=== PATIENT | female | born 1955 | race Caucasian/White ===

== ENCOUNTER 2022-01-07 13:10 | Inpatient (IN) | payer BC, MEDICARE ==
[~2022-01-07] VITALS: Ht 152.4 cm; Wt 63.5 kg
[2022-01-07] VITALS (8 sets, daily range): BP systolic 115–162; BP diastolic 57–99
[2022-01-07] MEDS ORDERED: POVIDONE IODINE 0.05% 0.05 % ML PO ONE (13:20)
[2022-01-07] MEDS ORDERED: PROPOFOL IV EMULSION 10 MG/ML 20 ML VIAL ONE (13:20)
[2022-01-07] MEDS ORDERED: LIDOCAINE HCL 2% LOCAL INJ 5 ML SDV VIAL INJ ONE (13:20)
[2022-01-07] MEDS ORDERED: ONDANSETRON HCL INJ 2MG/ML 2ML 2 MG/ML VIAL IV PRN (17:45)
[2022-01-07] MEDS ORDERED: Morphine 2mg Syringe 2 MG/ML SYR IV PRN (17:45)
[2022-01-07 19:02] LABS: BASOPHILS % 0.1 % (0.0-1.0); HEMATOCRIT 33.5 % (34.2-44.1); HEMOGLOBIN 10.5 g/dL (12.0-16.0); LYMPHOCYTES # (AUTO) 0.2 (1.0-3.2); LYMPHOCYTES % 1.4 % (18.0-39.1); MEAN CORPUSCULAR HEMOGLOBIN 28.9 pg (28-32); MEAN CORPUSCULAR HGB CONC 31.3 g/dL (31-35); MEAN CORPUSCULAR VOLUME 92.3 fL (81-99); MONOCYTES # (AUTO) 0.5 (0.2-0.8); MONOCYTES % 3.1 % (4.4-11.3); NEUTROPHILS # (AUTO) 14.7 (2.1-6.9); NEUTROPHILS % 94.6 % (38.7-80.0); PLATELET COUNT 244 x10e3/uL (140-360); RED BLOOD COUNT 3.63 x10e6/uL (3.6-5.1); RED CELL DISTRIBUTION WIDTH 19.5 % (11.7-14.4)
[2022-01-07 19:12] LABS: INR 1.03; PROTHROMBIN TIME 14.4 seconds (11.9-14.5)
[2022-01-07 19:37] LABS: ALBUMIN 2.1 g/dL (3.5-5.0); ALBUMIN/GLOBULIN RATIO 0.6 (0.8-2.0); ANION GAP 14.9 mmol/L (8-16); CALCIUM 8.2 mg/dL (8.4-10.2); CREATININE, SERUM 0.61 mg/dL (0.57-1.11); POTASSIUM 3.9 mmol/L (3.5-5.1)
[2022-01-07] MEDS: METHYLPREDNISOLONE SOD SUCC 125 MG/2ML VIAL IV SCH (19:50)
[2022-01-07] MEDS: D5.45%NS/KCL 20MEQ 1,000 ML IV SCH (19:50)
[2022-01-07] MEDS ORDERED: SODIUM CHLORIDE 0.9% 500ML 500 ML ONE (19:56)
[2022-01-07] MEDS: BUDESONIDE/FORMOTEROL 160/4.5MCG INHALER INH SCH (20:00)
[2022-01-07 20:11] LABS: MAGNESIUM 2.1 MG/DL (1.3-2.1)
[2022-01-07 20:13] LABS: LYMPHOCYTES % (MANUAL) 1 % (19-48); MONOCYTES % (MANUAL) 1 % (3.4-9.0); NEUTROPHILS % (MANUAL) 98 % (40-74); NUCLEATED RED BLOOD CELLS 6
[2022-01-07 20:14] LABS: POLYCHROMASIA FEW
[2022-01-07 20:15] LABS: PLATELET ESTIMATE ADEQUATE; PLATELET MORPHOLOGY COMMENT FEW GIANT
[2022-01-07 20:30] LABS: FERRITIN 346.28 ng/mL (4.63-204.00)
[2022-01-07] MEDS ORDERED: LEVALBUTER1.25 MG/3 (21:05)
[2022-01-07] MEDS ORDERED: TRELEGY ELLIPT1 EACH (21:05)
[2022-01-07] MEDS ORDERED: CLONAZEPAM1 MG (21:05)
[2022-01-07] MEDS ORDERED: BENZONATATE100 MG (21:05)
[2022-01-07] MEDS ORDERED: DIGOXIN125 MCG (21:05)
[2022-01-07] MEDS ORDERED: FUROSEMIDE40 MG (21:05)
[2022-01-07] MEDS ORDERED: ELIQUIS5 MG (21:05)
[2022-01-07] MEDS ORDERED: ACETAZOLAMIDE250 MG (21:05)
[2022-01-07] MEDS ORDERED: PREDNISONE20 MG (21:05)
[2022-01-07] MEDS ORDERED: IPRATROPIU0.2 MG/1 M (21:05)
[2022-01-07] MEDS ORDERED: DILTIAZEM HCL60 MG (21:05)
[2022-01-07] MEDS ORDERED: POTASSIUM CHLO20 ME2 (21:05)
[2022-01-07 21:27] LABS: ABG HCO3 32 mmol/L (22-26); ABG PCO2 57 mmHg (35-45); ABG PH 7.35 (7.35-7.45); ABG PO2 94 mmHg (80-105); ABG TCO2 33
[2022-01-07] MEDS: MEROPENEM 1 GM in SODIUM CHLORIDE 0.9% 100 ML IV SCH (21:50)
[2022-01-08] VITALS (27 sets, daily range): BP systolic 127–191; BP diastolic 67–105
[2022-01-08 02:16] LABS: CLARITY,URINE SL CLOUDY (CLEAR); COLOR,URINE YELLOW (YELLOW); KETONES,URINE NEGATIVE (NEGATIVE); LEUKOCYTE ESTERASE ,URINE NEGATIVE (NEGATIVE); NITRITE,URINE NEGATIVE (NEGATIVE); PROTEIN,URINE DIPSTICK 2+ (NEGATIVE); URINE UROBILINOGEN 1 mg/dL (0.2 - 1)
[2022-01-08 02:21] LABS: BACTERIA,URINE FEW /HPF; EPITHELIAL CELLS,URINE RARE /LPF; RBC,URINE >50 /HPF (0-5)
[2022-01-08] MEDS: D5.45%NS/KCL 20MEQ 1,000 ML IV SCH (03:36)
[2022-01-08 04:42] LABS: BASOPHILS % 0.1 % (0.0-1.0); HEMATOCRIT 32.7 % (34.2-44.1); HEMOGLOBIN 10.1 g/dL (12.0-16.0); LYMPHOCYTES # (AUTO) 0.2 (1.0-3.2); LYMPHOCYTES % 1.3 % (18.0-39.1); MEAN CORPUSCULAR HEMOGLOBIN 28.5 pg (28-32); MEAN CORPUSCULAR HGB CONC 30.9 g/dL (31-35); MEAN CORPUSCULAR VOLUME 92.4 fL (81-99); MONOCYTES # (AUTO) 0.4 (0.2-0.8); MONOCYTES % 2.8 % (4.4-11.3); NEUTROPHILS # (AUTO) 14.6 (2.1-6.9); NEUTROPHILS % 94.6 % (38.7-80.0); PLATELET COUNT 230 x10e3/uL (140-360); RED BLOOD COUNT 3.54 x10e6/uL (3.6-5.1); RED CELL DISTRIBUTION WIDTH 20.1 % (11.7-14.4)
[2022-01-08 04:58] LABS: ALBUMIN 2.1 g/dL (3.5-5.0); ALBUMIN/GLOBULIN RATIO 0.7 (0.8-2.0); ANION GAP 12.9 mmol/L (8-16); CALCIUM 7.6 mg/dL (8.4-10.2); CREATININE, SERUM 0.58 mg/dL (0.57-1.11); POTASSIUM 3.9 mmol/L (3.5-5.1)
[2022-01-08 05:31] LABS: FREE T4 (FREE THYROXINE) 0.91 ng/dL (0.8-1.8)
[2022-01-08] MEDS: MEROPENEM 1 GM in SODIUM CHLORIDE 0.9% 100 ML IV SCH ×3 (06:26→22:02)
[2022-01-08] MEDS: BUDESONIDE/FORMOTEROL 160/4.5MCG INHALER INH SCH ×2 (07:00→19:35)
[2022-01-08] MEDS: METHYLPREDNISOLONE SOD SUCC 125 MG/2ML VIAL IV SCH ×2 (08:50→20:56)
[2022-01-08] MEDS: FOLIC ACID 1 MG TAB PO SCH (08:56)
[2022-01-08] MEDS ORDERED: HYDRALAZINE HCL 20 MG/ML VIAL IV PRN (09:45)
[2022-01-08] MEDS ORDERED: SODIUM CHLORIDE 0.9% 250ML 250 ML IV ONE (10:00)
[2022-01-08] MEDS ORDERED: FUROSEMIDE INJ 10 MG/ML 2 ML VIAL IV ONE (11:00)
[2022-01-08 14:31] LABS: HEMATOCRIT 35.7 % (34.2-44.1); HEMOGLOBIN 11.1 g/dL (12.0-16.0)
[2022-01-08] MEDS ORDERED: EPINEPHRINE HCL 1:1000 1ML 1 MG/ML AMP ONE (14:45)
[2022-01-08] MEDS ORDERED: SODIUM CHLORIDE 0.9% 1000ML 1,000 ML ONE (15:30)
[2022-01-08 22:12] LABS: HEMOGLOBIN 11.1 g/dL (12.0-16.0)
[2022-01-09] VITALS (21 sets, daily range): BP systolic 117–179; BP diastolic 64–110
[2022-01-09] MEDS: MEROPENEM 1 GM in SODIUM CHLORIDE 0.9% 100 ML IV SCH ×3 (06:16→21:58)
[2022-01-09] MEDS: BUDESONIDE/FORMOTEROL 160/4.5MCG INHALER INH SCH ×2 (07:00→18:55)
[2022-01-09 07:16] LABS: HEMATOCRIT 35.4 % (34.2-44.1); LYMPHOCYTES # (AUTO) 0.1 (1.0-3.2); LYMPHOCYTES % 0.9 % (18.0-39.1); MEAN CORPUSCULAR HEMOGLOBIN 28.6 pg (28-32); MEAN CORPUSCULAR HGB CONC 31.1 g/dL (31-35); MEAN CORPUSCULAR VOLUME 91.9 fL (81-99); MONOCYTES # (AUTO) 0.3 (0.2-0.8); MONOCYTES % 2.8 % (4.4-11.3); NEUTROPHILS # (AUTO) 10.3 (2.1-6.9); PLATELET COUNT 220 x10e3/uL (140-360); RED BLOOD COUNT 3.85 x10e6/uL (3.6-5.1); RED CELL DISTRIBUTION WIDTH 19.8 % (11.7-14.4)
[2022-01-09 07:53] LABS: ALBUMIN/GLOBULIN RATIO 0.7 (0.8-2.0); ANION GAP 11.7 mmol/L (8-16); CALCIUM 7.5 mg/dL (8.4-10.2); CREATININE, SERUM 0.53 mg/dL (0.57-1.11); POTASSIUM 3.7 mmol/L (3.5-5.1)
[2022-01-09] MEDS: METHYLPREDNISOLONE SOD SUCC 125 MG/2ML VIAL IV SCH ×2 (08:38→19:52)
[2022-01-09] MEDS: FOLIC ACID 1 MG TAB PO SCH (09:00)
[2022-01-09] MEDS ORDERED: BACITRACIN ZINC 15 GM OINT TOP SCH (09:00)
[2022-01-09] MEDS: MUPIROCIN 2% OINT 22 GM TUBE TOP SCH (14:12)
[2022-01-09 14:16] LABS: HEMOGLOBIN 11.1 g/dL (12.0-16.0)
[2022-01-09] MEDS ORDERED: Morphine 2mg Syringe 2 MG/ML SYR IV ONE (17:45)
[2022-01-09] MEDS: DEXMEDETOMIDINE 400MCG/NS100ML 100 ML IV PRN (20:44)
[2022-01-10] VITALS (68 sets, daily range): BP systolic 96–175; BP diastolic 45–100
[2022-01-10 06:20] LABS: BASOPHILS % 0.1 % (0.0-1.0); HEMATOCRIT 32.1 % (34.2-44.1); HEMOGLOBIN 9.9 g/dL (12.0-16.0); LYMPHOCYTES # (AUTO) 0.1 (1.0-3.2); LYMPHOCYTES % 1.2 % (18.0-39.1); MEAN CORPUSCULAR HEMOGLOBIN 28.8 pg (28-32); MEAN CORPUSCULAR HGB CONC 30.8 g/dL (31-35); MEAN CORPUSCULAR VOLUME 93.3 fL (81-99); MONOCYTES # (AUTO) 0.2 (0.2-0.8); MONOCYTES % 2.4 % (4.4-11.3); NEUTROPHILS # (AUTO) 9.8 (2.1-6.9); NEUTROPHILS % 96.1 % (38.7-80.0); PLATELET COUNT 195 x10e3/uL (140-360); RED BLOOD COUNT 3.44 x10e6/uL (3.6-5.1)
[2022-01-10] MEDS: MEROPENEM 1 GM in SODIUM CHLORIDE 0.9% 100 ML IV SCH ×3 (06:29→20:31)
[2022-01-10] MEDS: BUDESONIDE/FORMOTEROL 160/4.5MCG INHALER INH SCH ×3 (07:00→20:15)
[2022-01-10 07:09] LABS: ALBUMIN 1.7 g/dL (3.5-5.0); ALBUMIN/GLOBULIN RATIO 0.5 (0.8-2.0); ANION GAP 13.7 mmol/L (8-16); CALCIUM 7.2 mg/dL (8.4-10.2); CREATININE, SERUM 0.5 mg/dL (0.57-1.11); POTASSIUM 3.7 mmol/L (3.5-5.1)
[2022-01-10] MEDS: METHYLPREDNISOLONE SOD SUCC 125 MG/2ML VIAL IV SCH ×2 (07:58→19:32)
[2022-01-10] MEDS: FOLIC ACID 1 MG TAB PO SCH (09:13)
[2022-01-10] MEDS: MUPIROCIN 2% OINT 22 GM TUBE TOP SCH (09:30)
[2022-01-10 13:18] LABS: HEMATOCRIT 34.7 % (34.2-44.1); HEMOGLOBIN 10.5 g/dL (12.0-16.0)
[2022-01-10] MEDS: LEVALBUTEROL HCL SOLN NEBU 0.63 MG/3 ML NEB INH PRN ×3 (14:45→22:45)
[2022-01-10] MEDS: ACETAMINOPHEN 325 MG TAB PO PRN (19:33)
[2022-01-10] MEDS: DILTIAZEM HCL 30 MG TAB PO SCH (20:31)
[2022-01-11] VITALS (93 sets, daily range): BP systolic 93–193; BP diastolic 54–134
[2022-01-11] MEDS: MEROPENEM 1 GM in SODIUM CHLORIDE 0.9% 100 ML IV SCH ×3 (05:20→20:19)
[2022-01-11 07:15] LABS: BASOPHILS % 0.1 % (0.0-1.0); HEMATOCRIT 31.4 % (34.2-44.1); HEMOGLOBIN 9.4 g/dL (12.0-16.0); LYMPHOCYTES # (AUTO) 0.1 (1.0-3.2); LYMPHOCYTES % 0.8 % (18.0-39.1); MEAN CORPUSCULAR HEMOGLOBIN 28.7 pg (28-32); MEAN CORPUSCULAR HGB CONC 29.9 g/dL (31-35); MEAN CORPUSCULAR VOLUME 95.7 fL (81-99); MONOCYTES # (AUTO) 0.2 (0.2-0.8); MONOCYTES % 1.9 % (4.4-11.3); NEUTROPHILS # (AUTO) 10.5 (2.1-6.9); NEUTROPHILS % 96.7 % (38.7-80.0); PLATELET COUNT 191 x10e3/uL (140-360); RED BLOOD COUNT 3.28 x10e6/uL (3.6-5.1)
[2022-01-11] MEDS: LEVALBUTEROL HCL SOLN NEBU 0.63 MG/3 ML NEB INH PRN ×3 (07:22→19:20)
[2022-01-11] MEDS: BUDESONIDE/FORMOTEROL 160/4.5MCG INHALER INH SCH ×2 (07:22→19:20)
[2022-01-11 07:24] LABS: ALBUMIN 1.7 g/dL (3.5-5.0); ALBUMIN/GLOBULIN RATIO 0.5 (0.8-2.0); ANION GAP 12.4 mmol/L (8-16); CALCIUM 7.4 mg/dL (8.4-10.2); CREATININE, SERUM 0.54 mg/dL (0.57-1.11); POTASSIUM 4.4 mmol/L (3.5-5.1)
[2022-01-11] MEDS: FOLIC ACID 1 MG TAB PO SCH (08:22)
[2022-01-11] MEDS: METHYLPREDNISOLONE SOD SUCC 125 MG/2ML VIAL IV SCH ×2 (08:22→20:19)
[2022-01-11] MEDS: DILTIAZEM HCL 30 MG TAB PO SCH ×3 (08:23→20:20)
[2022-01-11] MEDS ORDERED: DEXTROSE 50% SYRINGE 50 ML IV PRN (09:00)
[2022-01-11] MEDS: MUPIROCIN 2% OINT 22 GM TUBE TOP SCH (09:29)
[2022-01-11] MEDS: DEXMEDETOMIDINE 400MCG/NS100ML 100 ML IV PRN (09:30)
[2022-01-11] MEDS: DEXMEDETOMIDINE HCL 400 MCG in SODIUM CHLORIDE 0.9% 100 ML IV PRN ×2 (09:45→23:15)
[2022-01-11 11:44] LABS: ABG HCO3 29 mmol/L (22-26); ABG PCO2 41 mmHg (35-45); ABG PH 7.46 (7.35-7.45); ABG PO2 66 mmHg (80-105); ABG TCO2 30
[2022-01-11] MEDS: INSULIN REGULAR, HUMAN 100 UNIT/1 ML SQ SCH ×3 (11:44→22:02)
[2022-01-12] VITALS (78 sets, daily range): BP systolic 97–163; BP diastolic 52–81
[2022-01-12] MEDS: LEVALBUTEROL HCL SOLN NEBU 0.63 MG/3 ML NEB INH PRN ×5 (02:35→19:05)
[2022-01-12] MEDS: MEROPENEM 1 GM in SODIUM CHLORIDE 0.9% 100 ML IV SCH ×3 (05:29→21:16)
[2022-01-12 06:31] LABS: BASOPHILS % 0.1 % (0.0-1.0); HEMATOCRIT 31.9 % (34.2-44.1); HEMOGLOBIN 9.3 g/dL (12.0-16.0); LYMPHOCYTES # (AUTO) 0.1 (1.0-3.2); LYMPHOCYTES % 0.6 % (18.0-39.1); MEAN CORPUSCULAR HEMOGLOBIN 28.7 pg (28-32); MEAN CORPUSCULAR HGB CONC 29.2 g/dL (31-35); MEAN CORPUSCULAR VOLUME 98.5 fL (81-99); MONOCYTES # (AUTO) 0.4 (0.2-0.8); NEUTROPHILS # (AUTO) 12.2 (2.1-6.9); PLATELET COUNT 200 x10e3/uL (140-360); RED BLOOD COUNT 3.24 x10e6/uL (3.6-5.1); RED CELL DISTRIBUTION WIDTH 19.6 % (11.7-14.4)
[2022-01-12 06:58] LABS: ALBUMIN 1.8 g/dL (3.5-5.0); ALBUMIN/GLOBULIN RATIO 0.5 (0.8-2.0); ANION GAP 11.4 mmol/L (8-16); CALCIUM 7.9 mg/dL (8.4-10.2); CREATININE, SERUM 0.57 mg/dL (0.57-1.11); POTASSIUM 5.4 mmol/L (3.5-5.1)
[2022-01-12] MEDS: METHYLPREDNISOLONE SOD SUCC 125 MG/2ML VIAL IV SCH ×2 (08:18→20:59)
[2022-01-12] MEDS: INSULIN REGULAR, HUMAN 100 UNIT/1 ML SQ SCH ×4 (08:42→21:15)
[2022-01-12] MEDS: DILTIAZEM HCL 30 MG TAB PO SCH ×3 (08:58→20:30)
[2022-01-12] MEDS: FOLIC ACID 1 MG TAB PO SCH (08:59)
[2022-01-12] MEDS: MUPIROCIN 2% OINT 22 GM TUBE TOP SCH (09:11)
[2022-01-12] MEDS ORDERED: SOD POLYSTYRENE SULFONATE SUSP 15 GM/60 ML BTL PO ONE (10:45)
[2022-01-12 10:52] LABS: BAND NEUTROPHILS % (MANUAL) 1 %; MONOCYTES % (MANUAL) 4 % (3.4-9.0); NEUTROPHILS % (MANUAL) 95 % (40-74)
[2022-01-12 10:53] LABS: HYPOCHROMASIA SLIGHT
[2022-01-12 10:54] LABS: ANISOCYTOSIS SLIGHT; PLATELET ESTIMATE ADEQUATE
[2022-01-12 10:55] LABS: PLATELET MORPHOLOGY COMMENT NORMAL
[2022-01-12] MEDS: BUDESONIDE/FORMOTEROL 160/4.5MCG INHALER INH SCH ×2 (11:10→19:00)
[2022-01-12] MEDS ORDERED: KETOROLAC TROMETHAMINE 30 MG/ML VIAL IV ONE (12:45)
[2022-01-12] MEDS: ACETAMINOPHEN 325 MG TAB PO PRN (19:50)
[2022-01-12] MEDS: DEXMEDETOMIDINE HCL 400 MCG in SODIUM CHLORIDE 0.9% 100 ML IV PRN (19:55)
[2022-01-13] VITALS (26 sets, daily range): BP systolic 101–141; BP diastolic 44–80
[2022-01-13] MEDS: MEROPENEM 1 GM in SODIUM CHLORIDE 0.9% 100 ML IV SCH ×3 (05:26→21:34)
[2022-01-13] MEDS: BUDESONIDE/FORMOTEROL 160/4.5MCG INHALER INH SCH ×2 (07:00→19:00)
[2022-01-13 07:04] LABS: BASOPHILS % 0.1 % (0.0-1.0); HEMATOCRIT 31.7 % (34.2-44.1); HEMOGLOBIN 9.2 g/dL (12.0-16.0); LYMPHOCYTES # (AUTO) 0.1 (1.0-3.2); LYMPHOCYTES % 1.3 % (18.0-39.1); MEAN CORPUSCULAR HEMOGLOBIN 28.5 pg (28-32); MEAN CORPUSCULAR VOLUME 98.1 fL (81-99); MONOCYTES # (AUTO) 0.3 (0.2-0.8); MONOCYTES % 3.5 % (4.4-11.3); NEUTROPHILS # (AUTO) 9.1 (2.1-6.9); NEUTROPHILS % 94.7 % (38.7-80.0); PLATELET COUNT 201 x10e3/uL (140-360); RED BLOOD COUNT 3.23 x10e6/uL (3.6-5.1); RED CELL DISTRIBUTION WIDTH 19.5 % (11.7-14.4)
[2022-01-13 07:22] LABS: ALBUMIN 1.7 g/dL (3.5-5.0); ALBUMIN/GLOBULIN RATIO 0.5 (0.8-2.0); ANION GAP 11.3 mmol/L (8-16); CALCIUM 8.1 mg/dL (8.4-10.2); CREATININE, SERUM 0.48 mg/dL (0.57-1.11); MAGNESIUM 1.9 MG/DL (1.3-2.1); POTASSIUM 4.3 mmol/L (3.5-5.1)
[2022-01-13] MEDS: INSULIN REGULAR, HUMAN 100 UNIT/1 ML SQ SCH ×4 (07:27→20:04)
[2022-01-13] MEDS: DILTIAZEM HCL 30 MG TAB PO SCH (08:36)
[2022-01-13] MEDS: FOLIC ACID 1 MG TAB PO SCH (08:36)
[2022-01-13] MEDS: METHYLPREDNISOLONE SOD SUCC 125 MG/2ML VIAL IV SCH ×2 (08:39→20:04)
[2022-01-13] MEDS: MUPIROCIN 2% OINT 22 GM TUBE TOP SCH (08:40)
[2022-01-13] MEDS ORDERED: DEXTROSE 5% 1,000 ML IV ONE (09:00)
[2022-01-13] MEDS ORDERED: DILTIAZEM HCL 5 MG/ML 5 ML VIAL IV ONE (09:15)
[2022-01-13] MEDS: DILTIAZEM HCL 5 MG/ML 5 ML VIAL IV SCH ×2 (12:28→17:06)
[2022-01-13] MEDS: LEVALBUTEROL HCL SOLN NEBU 0.63 MG/3 ML NEB INH PRN ×2 (13:25→19:25)
[2022-01-13] MEDS: DEXMEDETOMIDINE HCL 400 MCG in SODIUM CHLORIDE 0.9% 100 ML IV PRN (15:52)
[2022-01-14] VITALS (25 sets, daily range): BP systolic 85–162; BP diastolic 52–79
[2022-01-14] MEDS: MEROPENEM 1 GM in SODIUM CHLORIDE 0.9% 100 ML IV SCH ×3 (05:58→21:20)
[2022-01-14] MEDS: DILTIAZEM HCL 5 MG/ML 5 ML VIAL IV SCH ×5 (06:00→23:39)
[2022-01-14] MEDS: BUDESONIDE/FORMOTEROL 160/4.5MCG INHALER INH SCH ×2 (07:00→19:00)
[2022-01-14 07:21] LABS: ALBUMIN 1.4 g/dL (3.5-5.0); ALBUMIN/GLOBULIN RATIO 0.4 (0.8-2.0); ANION GAP 13.9 mmol/L (8-16); CALCIUM 7.9 mg/dL (8.4-10.2); CREATININE, SERUM 0.5 mg/dL (0.57-1.11); MAGNESIUM 1.9 MG/DL (1.3-2.1); POTASSIUM 4.9 mmol/L (3.5-5.1)
[2022-01-14] MEDS: INSULIN REGULAR, HUMAN 100 UNIT/1 ML SQ SCH ×4 (07:30→20:10)
[2022-01-14] MEDS: FOLIC ACID 1 MG TAB PO SCH (08:29)
[2022-01-14] MEDS: METHYLPREDNISOLONE SOD SUCC 125 MG/2ML VIAL IV SCH ×2 (08:29→20:02)
[2022-01-14] MEDS: MUPIROCIN 2% OINT 22 GM TUBE TOP SCH (09:45)
[2022-01-14] MEDS: LEVALBUTEROL HCL SOLN NEBU 0.63 MG/3 ML NEB INH PRN ×2 (13:30→19:15)
[2022-01-14] MEDS: DEXMEDETOMIDINE HCL 400 MCG in SODIUM CHLORIDE 0.9% 100 ML IV PRN (20:03)
[2022-01-15] VITALS (23 sets, daily range): BP systolic 86–168; BP diastolic 57–107
[2022-01-15] MEDS: DILTIAZEM HCL 5 MG/ML 5 ML VIAL IV SCH ×3 (05:36→16:39)
[2022-01-15 06:12] LABS: BASOPHILS % 0.1 % (0.0-1.0); HEMATOCRIT 32.5 % (34.2-44.1); HEMOGLOBIN 9.4 g/dL (12.0-16.0); LYMPHOCYTES # (AUTO) 0.1 (1.0-3.2); LYMPHOCYTES % 0.6 % (18.0-39.1); MEAN CORPUSCULAR HEMOGLOBIN 28.3 pg (28-32); MEAN CORPUSCULAR HGB CONC 28.9 g/dL (31-35); MEAN CORPUSCULAR VOLUME 97.9 fL (81-99); MONOCYTES # (AUTO) 0.3 (0.2-0.8); MONOCYTES % 2.3 % (4.4-11.3); NEUTROPHILS # (AUTO) 13.8 (2.1-6.9); NEUTROPHILS % 96.5 % (38.7-80.0); PLATELET COUNT 219 x10e3/uL (140-360); RED BLOOD COUNT 3.32 x10e6/uL (3.6-5.1)
[2022-01-15 06:31] LABS: ALBUMIN 1.5 g/dL (3.5-5.0); ALBUMIN/GLOBULIN RATIO 0.4 (0.8-2.0); ANION GAP 15.7 mmol/L (8-16); CALCIUM 7.8 mg/dL (8.4-10.2); CREATININE, SERUM 0.54 mg/dL (0.57-1.11); POTASSIUM 4.7 mmol/L (3.5-5.1)
[2022-01-15] MEDS: BUDESONIDE/FORMOTEROL 160/4.5MCG INHALER INH SCH ×2 (07:00→10:05)
[2022-01-15] MEDS: LEVALBUTEROL HCL SOLN NEBU 0.63 MG/3 ML NEB INH PRN ×3 (07:20→15:28)
[2022-01-15] MEDS: INSULIN REGULAR, HUMAN 100 UNIT/1 ML SQ SCH ×4 (07:30→20:40)
[2022-01-15] MEDS: METHYLPREDNISOLONE SOD SUCC 125 MG/2ML VIAL IV SCH (07:49)
[2022-01-15] MEDS: MUPIROCIN 2% OINT 22 GM TUBE TOP SCH (09:00)
[2022-01-15] MEDS: FOLIC ACID 1 MG TAB PO SCH (09:00)
[2022-01-15] MEDS ORDERED: DEXTROSE 5% 1,000 ML IV ONE (09:15)
[2022-01-15 11:44] LABS: LYMPHOCYTES % (MANUAL) 2 % (19-48); NEUTROPHILS % (MANUAL) 98 % (40-74); PLATELET ESTIMATE ADEQUATE; PLATELET MORPHOLOGY COMMENT NORMAL; RBC MORPHOLOGY COMMENT NORMAL
[2022-01-15] MEDS ORDERED: METHYLPREDNISOLONE SOD SUCC 40 MG/ML VIAL 1ML IV SCH (19:45)
[2022-01-15] MEDS: DEXMEDETOMIDINE HCL 400 MCG in SODIUM CHLORIDE 0.9% 100 ML IV PRN (21:38)
== END 2022-01-15 23:32 | DRG 377 ==
LOC: ICU 17:02
PROVIDERS: ADMIT Internal Medicine; ATTEND Internal Medicine
PROC: 5A09357 Assistance with Respiratory Ventilation, Less than 24 Consecutive Hours, Continuous Positive Airway Pressure (ICD-10-PCS; 2022-01-07)
PROC: 5A09357 Assistance with Respiratory Ventilation, Less than 24 Consecutive Hours, Continuous Positive Airway Pressure (ICD-10-PCS; 2022-01-08)
PROC: 0DB78ZX Excision of Stomach, Pylorus, Via Natural or Artificial Opening Endoscopic, Diagnostic (ICD-10-PCS; principal; 2022-01-08 15:13)
PROC: 5A09357 Assistance with Respiratory Ventilation, Less than 24 Consecutive Hours, Continuous Positive Airway Pressure (ICD-10-PCS; 2022-01-09)
PROC: 5A09357 Assistance with Respiratory Ventilation, Less than 24 Consecutive Hours, Continuous Positive Airway Pressure (ICD-10-PCS; 2022-01-10)
PROC: 5A09357 Assistance with Respiratory Ventilation, Less than 24 Consecutive Hours, Continuous Positive Airway Pressure (ICD-10-PCS; 2022-01-11)
PROC: 5A09357 Assistance with Respiratory Ventilation, Less than 24 Consecutive Hours, Continuous Positive Airway Pressure (ICD-10-PCS; 2022-01-12)
PROC: 5A09357 Assistance with Respiratory Ventilation, Less than 24 Consecutive Hours, Continuous Positive Airway Pressure (ICD-10-PCS; 2022-01-13)
PROC: 5A09457 Assistance with Respiratory Ventilation, 24-96 Consecutive Hours, Continuous Positive Airway Pressure (ICD-10-PCS; 2022-01-14)
DX: K29.71 Gastritis, unspecified, with bleeding (principal); I50.33 Acute on chronic diastolic (congestive) heart failure; J96.22 Acute and chronic respiratory failure with hypercapnia; J18.9 Pneumonia, unspecified organism; D62 Acute posthemorrhagic anemia; J44.1 Chronic obstructive pulmonary disease with (acute) exacerbation; E87.0 Hyperosmolality and hypernatremia; J44.0 Chronic obstructive pulmonary disease with (acute) lower respiratory infection; C34.31 Malignant neoplasm of lower lobe, right bronchus or lung; I48.0 Paroxysmal atrial fibrillation; Z79.01 Long term (current) use of anticoagulants; I11.0 Hypertensive heart disease with heart failure; Z99.81 Dependence on supplemental oxygen; K44.9 Diaphragmatic hernia without obstruction or gangrene; K29.70 Gastritis, unspecified, without bleeding; Z66 Do not resuscitate; R73.9 Hyperglycemia, unspecified; T38.0X5A Adverse effect of glucocorticoids and synthetic analogues, initial encounter; I49.1 Atrial premature depolarization; R13.12 Dysphagia, oropharyngeal phase; E87.5 Hyperkalemia; Z20.822 Contact with and (suspected) exposure to COVID-19; Z88.1 Allergy status to other antibiotic agents; Z88.8 Allergy status to other drugs, medicaments and biological substances; Z87.891 Personal history of nicotine dependence; K92.89 Other specified diseases of the digestive system
CPT/HCPCS: 36415; 36600; 43239; 71045; 71250; 78278; 80053; 81001; 82270; 82607; 82728; 82746; 82805; 82948; 83036; 83540; 83735; 83880; 84439; 84443; 84466; 84479; 84480; 84484; 85014; 85018; 85025; 85045; 85610; 85730; 86850; 86900; 86920; 87086; 88305; 88312; 88342; 93005; 93306; 94640; 94660; 94664; 94799; 97139; 99251; A9512; J0171; J0360; J1817; J1885; J1940; J2001; J2185; J2270; J2920; J2930; J7030; J7040; J7050; J7070